=== PATIENT | male | born 1990 | race Caucasian/White ===

== ENCOUNTER 2016-10-03 21:10 | Emergency (ER) | payer OTHER ==
[2016-10-03 21:24] VITALS: BP 143/87
--- NOTE | 2016-10-03 22:00 | XRAY Preliminary Report ---
Exam: XR Ankle 3 View RT IMPRESSION: 1. Large amount of lateral ankle swelling. 2. Normal alignment. No fracture. [facility] SITE ID: [id number]
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
--- NOTE | 2016-10-03 23:18 | CT Preliminary Report ---
Exam: CT Head W/O IMPRESSION: No CT evidence of acute intracranial abnormality, specifically no CT evidence of acute infarct, intra cranial hemorrhage, mass effect, midline shift, or hydrocephalus. [facility] SITE ID: [id number]
--- NOTE | 2016-10-03 23:21 | CT Report ---
EXAM: CT HEAD EXAM DATE: 10/03/2016 11:04 PM. CLINICAL HISTORY: Head injury, dizziness. COMPARISON: None. TECHNIQUE: Multiaxial CT images were obtained from the foramen magnum to the vertex. IV contrast: Non e. Reformats: Coronal. In accordance with CT protocol optimization, one or more of the following dose reduction techniques w ere utilized for this exam: automated exposure control, adjustment of mA and/or KV based on patient s ize, or use of iterative reconstructive technique. FINDINGS: Parenchyma: No intraparenchymal hemorrhage. No evidence of mass, midline shift, or CT findings of inf arction. Garrido-white differentiation is distinct. Extraaxial Spaces: Normal for age. No subdural or epidural collections identified. Ventricles: Normal in size and position. Sinuses: Imaged paranasal sinuses, orbits, and mastoids show no significant abnormality. Bones: No evidence of fracture or calvarial defect. Other: None. IMPRESSION: No CT evidence of acute intracranial abnormality, specifically no CT evidence of acute infarct, intra cranial hemorrhage, mass effect, midline shift, or hydrocephalus. [facility] Referring Provider Line: [phone] SITE ID: [id number]
[2016-10-04] MEDS ORDERED: HYDROcod/ACETAM 5/325 MG TABLET PO STA (00:08)
[2016-10-04] MEDS ORDERED: HYDROcod/ACETAM 5/325 MG TABLET ONE (00:16)
== END 2016-10-04 00:50 | disposition home or self-care (01) ==
LOC: ED 21:10
DX: S09.90XA Unspecified injury of head, initial encounter (principal); S93.401A Sprain of unspecified ligament of right ankle, initial encounter; Y04.2XXA Assault by strike against or bumped into by another person, initial encounter; Y92.511 Restaurant or cafe as the place of occurrence of the external cause; Y99.0 Civilian activity done for income or pay
CPT/HCPCS: 1040M; 70450; 73610; 99283; 99284; A9270

== ENCOUNTER 2019-06-29 04:33 | Outpatient (CLI) | payer OTHER | END 2019-06-29 04:34 | disposition critical access hospital (66) | LOC: EMS 04:33 | PROVIDERS: ATTEND Surgery | DX: R11.10 Vomiting, unspecified (principal); R06.9 Unspecified abnormalities of breathing | CPT/HCPCS: A0425; A0429 ==

== ENCOUNTER 2019-06-29 04:59 | Emergency (ER) | payer OTHER ==
--- NOTE | 2019-06-29 04:45 | ED Physician Documentation ---
History of Present Illness - Stated complaint Stated Complaint: N/V - History obtained from History obtained from: Patient (Patient is a very pleasant 29-year-old male presents with a chief complaint of sore throat with nausea and vomiting he also noted some swelling in the back of his throat. He does arrive via EMS. He denies any other complaints denies fevers, headaches, neck pain, facial swelling, lip swelling, palpitations or rashes. He denies any history of previous similar episodes, he did not try any treatment prior to arrival.Patient denies any difficulty swallowing or difficulty speaking or any drooling.Patient denies taking any daily medications he denies any history of allergic reactions or anaphylaxis.) PD PAST MEDICAL HISTORY - Allergies Allergies/Adverse Reactions: Allergies Allergy/AdvReac Type Severity Reaction Status Date / Time No Known Drug Allergies Allergy Verified 10/03/16 21:18 PD ED PE NORMAL - Vitals Vital signs reviewed: Yes - General General: Alert and oriented X 3, No acute distress, Well developed/nourished - HEENT HEENT: Atraumatic, PERRL, Moist mucous membranes, Other (Tympanic membrane's are clear bilaterally external auditory canals are patent there is no swelling of the face or the lips there is no anterior posterior cervical lymphadenopathy trachea is midline no occipital lymphadenopathy no JVD no carotid bruits the posterior oropharynx shows the uvula to be midline however it is slightly edematous there is no exudates no sign of ANUG or Philip's or anaphylaxis or angioedema.) - Neck Neck: Supple, no meningeal sign - Cardiac Cardiac: RRR, No murmur, Strong equal pulses - Respiratory Respiratory: Clear bilaterally - Abdomen Abdomen: Normal bowel sounds, Soft, Non tender, Non distended, No organomegaly - Derm Derm: Warm and dry, No rash - Extremities Extremities: No deformity, No tenderness to palpate, Normal ROM s pain, No edema, No calf tenderness / cord - Neuro Neuro: Alert and oriented X 3, space operations officer 2-12 intact, No motor deficit, No sensory deficit, Normal speech - Psych Psych: Normal mood, Normal affect Results - Vitals Vitals: Vital Signs - 24 hr 06/29/19 05:04 Temperature 36.3 C L Heart Rate 107 H Respiratory 18 Rate Blood Pressure 151/102 H O2 Saturation 96 Oxygen O2 Source Room air - Labs Labs: Laboratory Tests 06/29/19 05:45 Group A Strep Rapid Negative PD MEDICAL DECISION MAKING - ED course Complexity details: reviewed results, re-evaluated patient, considered differential (pharyngitis, allergic reaction, uvula edema, strep/viral pharyngitis.), d/w patient (06:20 Swelling is minimal of the uvula. He has a normal voice is tolerating his secretions patient was treated with Benadryl and Decadron is tolerated p.o. challenge patient will be discharged home with close follow-up today she return to emergency department any concerns.) Departure - Departure Disposition: 01 Home, Self Care Clinical Impression: Uvular swelling, Uvulitis Pharyngitis Qualifiers: Pharyngitis/tonsillitis etiology: unspecified etiology Qualified Code(s): J02.9 - Acute pharyngitis, unspecified Condition: Stable Instructions: ED Pharyngitis Viral, ED Uvulitis Follow-Up: your, doctor [Other] - 06/29/19 Comments: hydrate well, take tylenol as needed for pain, follow up with your primary care provider today.
[2019-06-29] MEDS ORDERED: diphenhydrAMINE 25 MG CAPSULE PO STA (05:22)
[2019-06-29] MEDS ORDERED: DEXAMETHASONE 10 MG/ML VIAL PO STA (05:22)
[2019-06-29] MEDS ORDERED: CHERRY SYRUP 10 ML UDC PO ONE (05:22)
[2019-06-29 06:02] LABS: RAPID STREP SCREEN Negative (Negative)
[2019-06-29 06:25] VITALS: BP 133/83
== END 2019-06-29 06:25 | disposition home or self-care (01) ==
LOC: EDUNIT# → ED 04:59
DX: K12.2 Cellulitis and abscess of mouth (principal); J02.9 Acute pharyngitis, unspecified
CPT/HCPCS: 87070; 87430; 99281; 99283; A9270

== ENCOUNTER 2019-11-30 20:47 | Outpatient (CLI) | payer OTHER | END 2019-11-30 20:48 | disposition home or self-care (01) | LOC: COV 20:47 | PROVIDERS: ATTEND Family Medicine | DX: Z20.828 Contact with and (suspected) exposure to other viral communicable diseases (principal) ==

== ENCOUNTER 2019-12-06 16:52 | Outpatient (CLI) | payer OTHER | END 2019-12-06 16:53 | disposition home or self-care (01) | LOC: COV 16:52 | PROVIDERS: ATTEND Family Medicine | DX: M79.10 Myalgia, unspecified site (principal); R53.83 Other fatigue; R68.83 Chills (without fever); R09.81 Nasal congestion; Z20.828 Contact with and (suspected) exposure to other viral communicable diseases ==

== ENCOUNTER 2019-12-13 16:39 | Outpatient (CLI) | payer OTHER | END 2019-12-13 16:40 | disposition home or self-care (01) | LOC: COV 16:39 | PROVIDERS: ATTEND Family Medicine | DX: R50.9 Fever, unspecified (principal); Z20.828 Contact with and (suspected) exposure to other viral communicable diseases; R05 Cough; R53.83 Other fatigue; R09.81 Nasal congestion; J02.9 Acute pharyngitis, unspecified ==